=== PATIENT | female | born 1990 | race Caucasian/White ===

== ENCOUNTER 2018-02-11 06:00 | Inpatient (IN) | payer OTHER ==
[2018-02-11] MEDS ORDERED: TERBUTALINE 1 MG/ML VIAL SQ PRN (06:25)
[2018-02-11] MEDS ORDERED: OXYTOCIN 10 UNIT/ML 1 ML VIAL IM PRN (06:25)
[2018-02-11] MEDS ORDERED: CARBOPROST TROMETHAMINE 250 MCG/ML 1 ML AMP IM PRN (06:25)
[2018-02-11] MEDS ORDERED: LIDOCAINE 1% INJ 10MG/ML (20 ML MDV) SQ PRN (06:25)
[2018-02-11] MEDS ORDERED: METHYLERGONOVINE 0.2 MG/ML 1 ML AMP IM PRN (06:25)
[2018-02-11] MEDS: LACTATED RINGERS 1,000 ML IV SCH ×3 (06:41→17:59)
[2018-02-11] MEDS: OXYTOCIN 20 UNITS/1000 ML NS 1,000 ML IV SCH (06:44)
[2018-02-11 06:57] LABS: Glucose,Whole Blood 86 mg/dL (75-99)
[2018-02-11 07:00] LABS: Basophils % (A) 0 %; Eosinophils # (A) 0.1 k/uL (0-0.7); Eosinophils % (A) 2 %; HGB 12.2 gm/dL (11.4-16.0); Lymphocytes # (A) 1.5 k/uL (1.0-4.8); Lymphocytes % (A) 17 %; MCH 30.9 pg (25.0-35.0); MCV 90.9 fL (80.0-100.0); Mean Platelet Volume 7.4; Monocytes # (A) 0.5 k/uL (0-1.0); Monocytes % (A) 6 %; Neutrophils # (A) 6.2 k/uL (1.3-7.7); Neutrophils % (A) 73 %; Platelet Count 199 k/uL (150-450); RBC 3.96 m/uL (3.80-5.40); RDW 13.8 % (11.5-15.5); WBC 8.5 k/uL (3.8-10.6)
[2018-02-11 07:17] VITALS: BMI 29.8
[2018-02-11] MEDS: BUTORPHANOL 1 MG/ML 1 ML VIAL IV PRN ×2 (12:35→20:55)
[2018-02-11 13:46] LABS: Hemoglobin A1C 5.5 % (4.0-6.0)
[2018-02-11] MEDS ORDERED: ROPIVACAINE 5MG/ML 20ML VIAL ONE (14:01)
[2018-02-11] MEDS ORDERED: SODIUM CHLORIDE 0.9% 100 ML BAG ONE (14:01)
[2018-02-11] MEDS ORDERED: fentaNYL (PF) 50 MCG/ML 5 ML AMP ONE (14:01)
--- NOTE | 2018-02-11 18:19 | P.HPOB ---
History of Present Illness H&P Date: 02/11/18 Chief Complaint: IUP @ 403/7 weeks, post dates This is a 27 yo @ 40 3/7 weeks that presents for induction of labor secondary to postdates. Patient has been receiving routine care with myself since the first trimester. Patient has presumptive gestational diabetes as she was unable to tolerate the gestational diabetes screen. Patient notes good movement denies contractions or vaginal bleeding at this time. On blood work showed a blood type of AB+, rubella immune, hepatitis B surface antigen negative, HIV negative, RPR nonreactive, GBS negative. Review of Systems Constitutional: Denies chills, Denies fatigue, Denies fever Ears, nose, mouth and throat: Denies headache Cardiovascular: Reports leg edema Respiratory: Denies cough, Denies dyspnea Gastrointestinal: Denies constipation, Denies diarrhea, Denies nausea, Denies vomiting Genitourinary: Reports Past Medical History Past Medical History: Supraventricular Tachycardia (SVT) Additional Past Medical History / Comment(s): gestational diabetes 11/2017, heart murmur History of Any Multi-Drug Resistant Organisms: None Reported Additional Past Surgical History / Comment(s): D&C 8 yrs ago Past Anesthesia/Blood Transfusion Reactions: No Reported Reaction Past Psychological History: Anxiety, Depression, Panic Disorder Smoking Status: Former smoker Past Alcohol Use History: None Reported Past Drug Use History: None Reported - Past Family History Brother(s) Family Medical History: Diabetes Mellitus Additional Family Medical History / Comment(s): type 1 Mother Family Medical History: Hypertension, Myocardial Infarction ([place]) Medications and Allergies Home Medications Medication Instructions Recorded Confirmed Type Pnv No.95/Ferrous Fum/Folic AC 1 tab PO DAILY 12/03/17 02/11/18 History [ Multivitamin Tablet] Allergies Allergy/AdvReac Type Severity Reaction Status Date / Time No Known Allergies Allergy Verified 02/11/18 06:24 Exam Osteopathic Statement: *. No significant issues noted on an osteopathic structural exam other than those noted in the History and Physical/Consult. Vital Signs Temp Pulse Resp BP 02/11/18 07:09 97.9 F 79 18 121/72 Intake and Output 02/11/18 02/11/18 02/11/18 06:59 14:59 22:59 Intake Total 1600 Balance 1600 Intake: Intake, IV Titration 1000 Amount Lactated Ringers 1,000 ml 1000 @ 125 mls/hr IV .Q8H [facility] Rx#:[id number] Oral 600 Other: Weight 83.915 kg 83.915 kg - OBG Physical Exam Abdomen: Gravid and appropriate for gestational age Cervix: 2/-3 amniotomy is performed and clear fluid was obtained Uterus: enlarged Results Result Diagrams: 02/11/18 06:40 Assessment and Plan (1) Post-dates Current Visit: Yes Status: Acute Code(s): O48.0 - POST-TERM SNOMED Code(s): 99103809 Plan: Admit to labor and delivery for Pitocin induction of labor. Patient does request epidural for pain relief. Anesthesia will be notified when she desires. Anticipate spontaneous vaginal delivery later today.
[2018-02-11] MEDS ORDERED: HYDROcodone/APAP 7.5-325MG 1 EACH TAB PO PRN (21:18)
[2018-02-11] MEDS ORDERED: BENZOCAINE/MENTHOL SPRAY 1 GM/SPRAY AEROSOL TOPICAL PRN (21:18)
[2018-02-11] MEDS ORDERED: HYDROcodone/APAP 5-325MG 1 EACH TAB PO PRN (21:18)
[2018-02-11] MEDS ORDERED: LANOLIN CREAM 5 GM TUBE TOPICAL PRN (21:18)
[2018-02-11] MEDS ORDERED: WITCH HAZEL 1 EACH MED..PAD TOPICAL PRN (21:18)
[2018-02-11] MEDS ORDERED: diphenhydrAMINE 50 MG CAP PO PRN (21:18)
[2018-02-11] MEDS ORDERED: SIMETHICONE 80 MG CHEWABLE PO PRN (21:18)
[2018-02-11] MEDS ORDERED: diphenhydrAMINE 50 MG/ML 1 ML VIAL IVP PRN ×2 (21:18)
[2018-02-11] MEDS ORDERED: ZOLPIDEM 5 MG TAB PO PRN (21:18)
[2018-02-11] MEDS ORDERED: diphenhydrAMINE 25 MG CAP PO PRN (21:18)
[2018-02-11] MEDS ORDERED: HYDROCORTISONE 2.5% RECTAL CREAM 30 GM TUBE RECTAL PRN (21:18)
--- NOTE | 2018-02-11 21:18 | P.PROBDLV ---
Vaginal Delivery Note - . Vaginal Delivery Note: this is a pleasant 27-year-old 2 para 0010 at 40-3/7 weeks that presented to labor and delivery earlier this morning for induction of labor secondary to postdates. Patient was begun on Pitocin and amniotomy was performed once regular contractions were noted. On amniotomy clear fluid was obtained. Patient became uncomfortable and requested an epidural which was placed by anesthesia without difficulty. Patient progressed through labor became complete began pushing and had a normal spontaneous vaginal delivery of a viable female infant at 2043 weight of 8 lbs. 8 oz. with Apgars of 9 and 9 at one and 5 minutes respectively. The umbilical cord was then doubly clamped and cut and the placenta was delivered intact spontaneously. A three-vessel cord was noted. The vaginal vault was inspected and a second-degree midline laceration was noted. This was then injected with lidocaine and repaired in the usual fashion with 3-0 repeat. Afterwards the vaginal vault was inspected hemostasis was appreciated. The uterus was noted to be slightly boggy and Methergine was given during the repair of the second-degree midline laceration. The uterus was palpated and firm below the umbilicus at this time. Estimated blood loss 400 mL. A rectal exam was performed and noted to be intact without defects. Patient and tolerated delivery well and are resting comfortably.
[2018-02-11] MEDS ORDERED: OXYTOCIN 20 UNITS/1000 ML NS 1,000 ML IV SCH (21:30)
[2018-02-11] MEDS: IBUPROFEN 600 MG TAB PO PRN (22:17)
[2018-02-12] MEDS: ACETAMINOPHEN TAB 325 MG TAB PO PRN ×2 (00:16→07:42)
[2018-02-12] MEDS: IBUPROFEN 600 MG TAB PO PRN ×2 (05:02→21:51)
[2018-02-12 07:04] LABS: Basophils % (A) 0 %; Eosinophils % (A) 0 %; HCT 28.9 % (34.0-46.0); Lymphocytes # (A) 1.6 k/uL (1.0-4.8); Lymphocytes % (A) 12 %; MCH 31.5 pg (25.0-35.0); MCHC 34.2 g/dL (31.0-37.0); MCV 91.9 fL (80.0-100.0); Monocytes # (A) 0.7 k/uL (0-1.0); Monocytes % (A) 5 %; Neutrophils # (A) 11.6 k/uL (1.3-7.7); Neutrophils % (A) 82 %; Platelet Count 175 k/uL (150-450); RBC 3.14 m/uL (3.80-5.40); RDW 13.9 % (11.5-15.5); WBC 14.1 k/uL (3.8-10.6)
[2018-02-12 07:05] LABS: HGB 9.9 gm/dL (11.4-16.0)
[2018-02-12] MEDS: LACTATED RINGERS 1,000 ML IV SCH (07:36)
[2018-02-12] MEDS: OXYTOCIN 20 UNITS/1000 ML NS 1,000 ML IV SCH (07:37)
[2018-02-12] MEDS: SENNOSIDES-DOCUSATE SODIUM 1 EACH TAB PO SCH ×2 (07:44→21:51)
--- NOTE | 2018-02-12 09:51 | P.PNOBGVD ---
Subjective - Subjective Principal diagnosis: PPD 1 Interval history: Patient is doing well on this day #1. She is ambulating and voiding without difficulty. She is tolerating a regular diet without nausea or vomiting. She states her pain is controlled. She has elected to bottle feed. Patient reports: Reports appetite normal, Reports voiding normally, Reports pain well controlled, Reports ambulating normally [place]: doing well Objective - Latest Vital Signs Latest vital signs: Vital Signs Temp Pulse Resp BP 02/12/18 08:00 97.5 F L 88 116/66 02/12/18 04:00 97.9 F 77 16 106/65 02/12/18 00:00 98.2 F 95 18 94/56 02/11/18 23:00 90 18 110/61 02/11/18 22:30 87 18 111/63 02/11/18 22:00 97.9 F 77 18 104/60 02/11/18 21:45 92 18 101/60 02/11/18 21:30 97.5 F L 81 18 104/60 02/11/18 21:15 76 18 104/60 02/11/18 21:00 98.3 F 85 18 109/63 Intake and Output 02/11/18 02/12/18 02/12/18 22:59 06:59 14:59 Intake Total 2042.15 Output Total 400 Balance 1642.15 Intake: Intake, IV Titration 2042.15 Amount Lactated Ringers 1,000 ml 1000 @ 125 mls/hr IV .Q8H [facility] Rx#:[id number] Oxytocin 20 Units/1000 ml 42.15 Ns 1,000 ml @ 1 MILLIUNIT/MIN 3 mls/hr IV .Q24H [facility] Rx#:[id number] Oxytocin 20 Units/1000 ml 1000 Ns 1,000 ml @ Per Protocol IV .Q0M [facility] Rx#: [id number] Output: Estimated Blood Loss 400 Other: # Voids 1 - Exam Chest: Normal S2 Extremities: Present: normal, edema Abdomen: Present: normal appearance Uterus: Present: normal, firm - Labs Labs: Abnormal Lab Results - Last 24 Hours (Table) 02/12/18 Range/Units 06:41 WBC 14.1 H (3.8-10.6) k/uL RBC 3.14 L (3.80-5.40) m/uL Hgb 9.9 L D (11.4-16.0) gm/dL Hct 28.9 L (34.0-46.0) % Neutrophils # 11.6 H (1.3-7.7) k/uL Assessment and Plan (1) Post-dates Current Visit: Yes Status: Acute Code(s): O48.0 - POST-TERM SNOMED Code(s): 69754679 (2) Acute blood loss anemia Current Visit: Yes Status: Acute Code(s): D62 - ACUTE POSTHEMORRHAGIC ANEMIA SNOMED Code(s): 796470758 (3) Status post vaginal delivery Current Visit: Yes Status: Acute Code(s): XCY1909 - SNOMED Code(s): 252996575 Plan: We'll continue routine care. And anticipate discharge tomorrow morning.
[2018-02-12] MEDS ORDERED: PRENATAL VIT-IRON-FOLIC ACID 1 EACH CAP PO SCH (12:00)
[2018-02-13] MEDS: IBUPROFEN 600 MG TAB PO PRN (06:38)
[2018-02-13] MEDS: SENNOSIDES-DOCUSATE SODIUM 1 EACH TAB PO SCH (07:51)
[2018-02-13 08:29] VITALS: BP 108/61; PULSE 68; RESP 18; TEMP 97.6
--- NOTE | 2018-02-13 08:36 | P.DS ---
Providers Date of admission: 02/11/18 06:05 Expected date of discharge: 02/13/18 Attending physician: Gabi Edwards Primary care physician: Yenifer Brown - Discharge Diagnosis(es) (1) Post-dates Current Visit: Yes Status: Acute (2) Acute blood loss anemia Current Visit: Yes Status: Acute (3) Status post vaginal delivery Current Visit: Yes Status: Acute (4) Second degree perineal laceration during delivery Current Visit: Yes Status: Acute Hospital Course: This is a very pleasant 27-year-old 2 para 0010 at 40-3/7 weeks with an estimated due date of 02/08 presented to labor and delivery for induction of labor secondary to postdates. Patient was admitted to labor and delivery and Pitocin induction of labor was begun. Amniotomy was performed and clear fluid was obtained. Patient progressed through labor becoming uncomfortable requesting an epidural. This epidural was placed without difficulty by the anesthesia department. Patient progressed to complete began pushing and had a normal spontaneous vaginal delivery of a viable female at 2043, weight of 8 lbs. 8 oz. with Apgars of 9 and 9 at one and 5 minutes respectively. Patient did sustain a second-degree laceration during delivery which was repaired in the usual fashion. On this day #2 she is ambulating and voiding without difficulty. She is tolerating a regular diet without nausea or vomiting. She denies concerns and states she is ready for discharge home. Of note she is bottle feeding. Patient Condition at Discharge: Good Plan - Discharge Summary New Discharge Prescriptions: No Action Pnv No.95/Ferrous Fum/Folic AC [ Multivitamin Tablet] 1 tab PO DAILY Discharge Medication List Pnv No.95/Ferrous Fum/Folic AC [ Multivitamin Tablet] 1 tab PO DAILY 08/15 [History] Follow up Appointment(s)/Referral(s): Gabi Edwards DO [Doctor of Osteopathic Medicine] - 4 Weeks Discharge Disposition: HOME SELF-CARE
== END 2018-02-13 10:40 | disposition home or self-care (01) | DRG 806 ==
LOC: 4FBP 06:05
PROVIDERS: ADMIT Obstetrics & Gynecology Obstetrics; ATTEND Obstetrics & Gynecology Obstetrics
PROC: 10E0XZZ Delivery of Products of Conception, External Approach (ICD-10-PCS; principal; 2018-02-11)
PROC: 0KQM0ZZ Repair Perineum Muscle, Open Approach (ICD-10-PCS; 2018-02-11)
PROC: 10907ZC Drainage of Amniotic Fluid, Therapeutic from Products of Conception, Via Natural or Artificial Opening (ICD-10-PCS; 2018-02-11)
PROC: 3E033VJ Introduction of Other Hormone into Peripheral Vein, Percutaneous Approach (ICD-10-PCS; 2018-02-11)
PROC: 00HU33Z Insertion of Infusion Device into Spinal Canal, Percutaneous Approach (ICD-10-PCS; 2018-02-11)
PROC: 3E0R3BZ Introduction of Anesthetic Agent into Spinal Canal, Percutaneous Approach (ICD-10-PCS; 2018-02-11)
DX: O48.0 Post-term pregnancy (principal); D62 Acute posthemorrhagic anemia; Z37.0 Single live birth; O24.429 Gestational diabetes mellitus in childbirth, unspecified control; O99.344 Other mental disorders complicating childbirth; O70.1 Second degree perineal laceration during delivery; F32.9 Major depressive disorder, single episode, unspecified; F41.0 Panic disorder [episodic paroxysmal anxiety]; O99.02 Anemia complicating childbirth; O99.62 Diseases of the digestive system complicating childbirth; K21.9 Gastro-esophageal reflux disease without esophagitis; Z3A.40 40 weeks gestation of pregnancy; Z87.891 Personal history of nicotine dependence; Z83.3 Family history of diabetes mellitus; Z82.49 Family history of ischemic heart disease and other diseases of the circulatory system
CPT/HCPCS: 83036; 85025; 86850; 86900; 86901

== ENCOUNTER 2022-02-14 13:40 | Outpatient (CLI) | payer BC ==
[2022-02-14 14:53] LABS: Appearance,Urine Clear (Clear); Bacteria,Urine Rare /hpf; Bilirubin,Urine Negative (Negative); Blood,Urine Negative (Negative); Color,Urine Yellow; Glucose,Urine (UA) Negative (Negative); Ketones,Urine 2+ (Negative); Leukocyte Esterase,Urine Large (Negative); Mucus,Urine Rare /hpf; Nitrite,Urine Negative (Negative); PH, Urine 5.5 (5.0-8.0); Protein,Urine Negative (Negative); RBC,Urine 3 /hpf (0-5); Specific Gravity,Urine 1.009 (1.001-1.035); Squamous Epithelial Cell,Urine 2 /hpf (0-4); Urobilinogen,Urine <2.0 mg/dL (<2.0); WBC,Urine 4 /hpf (0-5)
[2022-02-14 18:51] VITALS: BP 105/54; PULSE 80; RESP 16; TEMP 97.9
--- NOTE | 2022-03-20 19:34 | P.MSEPDOC ---
Presenting Problems - Arrival Data Date of Arrival on Unit: 02/14/22 Time of Arrival on Unit: 13:40 Mode of Transport: Ambulatory - Complaint OB-Reason for Admission/Chief Complaint: Vaginal Bleeding Comment: pt here with complaints of vaginal spotting that happened 1 time around 2am last night. small amount pink with mucus when wiped after voiding. also says had been having cramping off and on for 3 days. the cramping slowed down yesterday for most of the day but is back around noon today. cramping pain come and go lower abdomen but no. pattern. Medical History - Information : 5 Para: 1 Term: 1 : 0 Abortions: Spontaneous or Elective: 3 Number of Living Children: 1 - Gestational Age Gestational Age by KEYSHA (wks/days): 28 Weeks and 2 Days - History Comment: 1 vag delivery term no complications. Review of Systems - Review of Systems Constitutional: No problems Breast: No problems ENT: No problems Cardiovascular: No problems Respiratory: No problems Gastrointestinal: No problems Genitourinary: No problems Musculoskeletal: No problems Neurological: No problems Skin: No problems Vital Signs - Temperature Temperature: 97.9 F Temperature Source: Temporal Artery Scan - Pulse Right Supine Pulse Rate: 80 Pulse Assessment Method: Automatic Cuff - Respirations Respiratory Rate: 16 Oxygen Delivery Method: Room Air O2 Sat by Pulse Oximetry: 98 - Blood Pressure Left Arm Blood Pressure: 105/54 Blood Pressure Mean: 71 Blood Pressure Source: Automatic Cuff Medical Screen Scoring - Cervical Exam Dilation (cm): 0 Effacement (%): 0 Membranes: Intact - Uterine Contractions Frequency From (mins): 0 Frequency To (mins): 0 Duration From (seconds): 0 Duration To (seconds): 0 Resting: Soft to palpation - Assessment - Baby A Baseline FHR: 120 Heart Rate - NICHD Category: Category I (Normal) NST: Reactive Physician Notification - Physician Notified Physician Notified Date: 02/14/22 Physician Notified Time: 14:20 Physician: Gabi Edwards New Order Received: Yes - Notification Comment Comment: orders received for UA and cervical exam. Pt may discharge if both normal. Call for further orders if not. [id number] Reported [address]a results to Dr Edwards along with cervix closed with copious amount of greenish curdled discharge vaginally. orders recieved for discharge home and pt to [facility] scripts for diflucan and antibiotics and start tonight. pt also to hydrate with lots of water. Maternal Triage Index - Maternal Triage Index Presenting for scheduled procedure w/no complaint: No - Stat/Priority 1 Stat Priority 1: No - Urgent/Priority 2 Urgent Priority 2: No - Prompt/Priority 3 Prompt Priority 3: No - Non-Urgent/Priority 4 Non-Urgent Priority 4: Yes Criteria Met for Priority 4: mild cramping 28 weeks vag discharge with small spotting >12 hrs ago Disposition - Disposition OB Disposition: Discharge to home Discharge Date: 02/14/22 Discharge Time: 16:10 I agree with the RN Medical Screening Exam: Yes Case reviewed; plan agreed upon as documented in EMR&OBIX.: Yes Diagnosis: RELATED CONDITIONS, UNSPECIFIED, THIRD TRIMESTER
== END 2022-02-14 16:10 | disposition home or self-care (01) ==
LOC: FBPOP 13:40
PROVIDERS: ATTEND Obstetrics & Gynecology Obstetrics
DX: O26.893 Other specified pregnancy related conditions, third trimester (principal); N93.9 Abnormal uterine and vaginal bleeding, unspecified; Z3A.28 28 weeks gestation of pregnancy; Z88.2 Allergy status to sulfonamides; Z87.891 Personal history of nicotine dependence
CPT/HCPCS: 59025; 81001; 99213

== ENCOUNTER 2022-05-01 05:50 | Inpatient (IN) | payer BC ==
[2022-05-01] MEDS ORDERED: TERBUTALINE 1 MG/ML VIAL SQ PRN (06:21)
[2022-05-01] MEDS ORDERED: LIDOCAINE 0.5% (PF) 5 MG/ML (50 ML SDV) SQ PRN (06:21)
[2022-05-01] MEDS ORDERED: OXYTOCIN 30 UNITS/500 ML NS 30 UNIT in SALINE 1 500ML.BAG IV SCH ×2 (06:30→15:30)
[2022-05-01] MEDS: LACTATED RINGERS 1,000 ML IV SCH ×3 (06:31→22:35)
[2022-05-01 07:00] LABS: Basophils % (A) 0 %; Eosinophils # (A) 0.2 k/uL (0-0.7); Eosinophils % (A) 1 %; HCT 32.1 % (34.0-46.0); HGB 11.1 gm/dL (11.4-16.0); Lymphocytes # (A) 2.1 k/uL (1.0-4.8); Lymphocytes % (A) 20 %; MCH 30.2 pg (25.0-35.0); MCHC 34.6 g/dL (31.0-37.0); MCV 87.4 fL (80.0-100.0); Mean Platelet Volume 8.5; Monocytes # (A) 0.6 k/uL (0-1.0); Monocytes % (A) 6 %; Neutrophils # (A) 7.6 k/uL (1.3-7.7); Neutrophils % (A) 71 %; Platelet Count 258 k/uL (150-450); Poikilocytosis Slight; RBC 3.68 m/uL (3.80-5.40); WBC 10.7 k/uL (3.8-10.6)
[2022-05-01] MEDS ORDERED: BUPIVACAINE (PF) 0.25% 30 ML VIAL ONE (12:18)
[2022-05-01] MEDS ORDERED: fentaNYL (PF) 50 MCG/ML 5 ML AMP ONE (12:18)
[2022-05-01] MEDS ORDERED: SODIUM CHLORIDE 0.9% 100 ML BAG ONE (12:18)
[2022-05-01] MEDS ORDERED: METHYLERGONOVINE 0.2 MG/ML 1 ML AMP IM ONE (15:06)
--- NOTE | 2022-05-01 15:08 | P.PROBDLV ---
Vaginal Delivery Note - . Vaginal Delivery Note: findings: Viable male infant delivered at 1447, weight of 8 lbs. 14 oz., Apgars of 8 and 9 at one and 5 minutes respectively 31-year-old at 39 and one sevenths weeks that presents to labor and delivery for induction of labor secondary to polyhydramnios. Patient is admitted to labor and delivery and Pitocin induction of labor is begun. Amniotomy is performed and copious clear fluid was appreciated. Patient progressed through labor eventually becoming uncomfortable and requesting epidural placement. Epidural was placed without difficulty by the anesthesia department. Patient made good progress to complete and began pushing. With excellent maternal effort she did bring the down to presentation. With the additional pushes the head followed by the anterior/posterior shoulder were delivered, the body was then placed on the maternal abdomen. Spontaneous cry was noted. After two-minute delay the umbilical cord was doubly clamped and cut and the placenta was delivered spontaneously intact with a three-vessel cord being noted. The placenta was inspected and found to be hemostatic. On inspection the patient's vaginal vault a second-degree midline laceration was appreciated. This was instilled with lidocaine and repaired in the usual fashion with 3-0 Rapide. The uterus was noted to be firm and below the umbilicus. A small amount of bleeding was noted throughout the repair therefore Methergine was given. Uterus was then noted to be firm and below the umbilicus. Just prior to pushing the bladder was drained for 200 mL of clear yellow urine. Patient and infant tolerated delivery well and are resting comfortable he. All counts were noted to be correct 2 at the end of the delivery.
[2022-05-01] MEDS ORDERED: LANOLIN CREAM 5 GM TUBE TOPICAL PRN (15:25)
[2022-05-01] MEDS ORDERED: diphenhydrAMINE 50 MG CAP PO PRN (15:25)
[2022-05-01] MEDS ORDERED: ACETAMINOPHEN TAB 325 MG TAB PO PRN (15:25)
[2022-05-01] MEDS ORDERED: HYDROCORTISONE 2.5% RECTAL CREAM 30 GM TUBE RECTAL PRN (15:25)
[2022-05-01] MEDS ORDERED: BENZOCAINE/MENTHOL SPRAY 1 GM/SPRAY AEROSOL TOPICAL PRN (15:25)
[2022-05-01] MEDS ORDERED: diphenhydrAMINE 25 MG CAP PO PRN (15:25)
[2022-05-01] MEDS ORDERED: ZOLPIDEM 5 MG TAB PO PRN (15:25)
[2022-05-01] MEDS ORDERED: SIMETHICONE 80 MG CHEWABLE PO PRN (15:25)
[2022-05-01] MEDS ORDERED: diphenhydrAMINE 50 MG/ML 1 ML VIAL IVP PRN ×2 (15:25)
[2022-05-01] MEDS: IBUPROFEN 600 MG TAB PO PRN ×2 (17:29→23:42)
[2022-05-01] MEDS ORDERED: DIPH,PERTUS(ACELL)TETVAC-LF 0.5 ML VIAL IM ONE (19:10)
[2022-05-01] MEDS: SENNOSIDES-DOCUSATE SODIUM 1 EACH TAB PO SCH (22:35)
[2022-05-02] MEDS: IBUPROFEN 600 MG TAB PO PRN ×2 (04:13→09:44)
[2022-05-02 08:07] LABS: Basophils # (A) 0.1 k/uL (0-0.2); Basophils % (A) 0 %; Eosinophils # (A) 0.2 k/uL (0-0.7); Eosinophils % (A) 1 %; HCT 32.1 % (34.0-46.0); HGB 10.8 gm/dL (11.4-16.0); Lymphocytes % (A) 15 %; MCH 29.6 pg (25.0-35.0); MCHC 33.8 g/dL (31.0-37.0); MCV 87.8 fL (80.0-100.0); Mean Platelet Volume 8.5; Monocytes # (A) 0.8 k/uL (0-1.0); Monocytes % (A) 6 %; Neutrophils # (A) 9.7 k/uL (1.3-7.7); Neutrophils % (A) 75 %; Platelet Count 263 k/uL (150-450); Poikilocytosis Slight; RBC 3.66 m/uL (3.80-5.40)
--- NOTE | 2022-05-02 08:28 | P.HPOB ---
History of Present Illness H&P Date: 05/01/22 Chief Complaint: IUP at 39 and one sevenths weeks, polyhydramnios this is a 31-year-old 031 at 39 and one sevenths weeks, estimated due date of 05/07/2022 that presents to labor and delivery for induction of labor secondary to polyhydramnios. Patient has been receiving routine care that has been complicated by polyhydramnios. Patient notes good movement notes an occasional contraction denies loss of fluid or vaginal bleeding. On bloodwork this patient is a blood type of AB+, rubella status immune, B surface antigen negative, HIV negative, RPR is nonreactive, group beta strep cultures are negative. Review of Systems Constitutional: Denies chills, Denies fatigue, Denies fever Ears, nose, mouth and throat: Denies headache Cardiovascular: Reports leg edema Respiratory: Denies dyspnea Gastrointestinal: Denies constipation, Denies diarrhea, Denies nausea, Denies vomiting Genitourinary: Reports Past Medical History Past Medical History: Supraventricular Tachycardia (SVT) Additional Past Medical History / Comment(s): gestational diabetes 11/2017, heart murmur History of Any Multi-Drug Resistant Organisms: None Reported Additional Past Surgical History / Comment(s): D&C 8 yrs ago Past Anesthesia/Blood Transfusion Reactions: No Reported Reaction Past Psychological History: Anxiety, Depression, Panic Disorder Smoking Status: Former smoker Past Alcohol Use History: None Reported Past Drug Use History: None Reported - Past Family History Brother(s) Family Medical History: Diabetes Mellitus Additional Family Medical History / Comment(s): type 1 Mother Family Medical History: Hypertension, Myocardial Infarction ([place]) Medications and Allergies Home Medications Medication Instructions Recorded Confirmed Type Pnv No.95/Ferrous Fum/Folic AC 1 tab PO DAILY 12/03/17 05/01/22 History [ Multivitamin Tablet] Allergies Allergy/AdvReac Type Severity Reaction Status Date / Time Sulfa (Sulfonamide Allergy Rash/Hives Verified 05/01/22 06:13 Antibiotics) Exam Osteopathic Statement: *. No significant issues noted on an osteopathic structural exam other than those noted in the History and Physical/Consult. 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 well-developed female in no acute distress, breathing is nonlabored, heart has a regular rate and rhythm, abdomen is gravid on heart tones, there noted to be category 1 and she is zak every 4 minutes on cervical exam she is 4-5/70/-2 station amniotomy is performed and clear fluid is obtained, copious amount Results Result Diagrams: 05/02/22 07:16 Abnormal Lab Results - Last 24 Hours (Table) 05/01/22 Range/Units 06:20 WBC 10.7 H (3.8-10.6) k/uL RBC 3.68 L (3.80-5.40) m/uL Hgb 11.1 L (11.4-16.0) gm/dL Hct 32.1 L (34.0-46.0) % Assessment and Plan (1) Term Current Visit: Yes Status: Acute Code(s): Z34.90 - ENCNTR FOR SUPRVSN OF NORMAL , UNSP, UNSP TRIMESTER SNOMED Code(s): 63377324 (2) Polyhydramnios Current Visit: Yes Status: Acute Code(s): O40.9XX0 - POLYHYDRAMNIOS, UNSP TRIMESTER, NOT APPLICABLE OR UNSP SNOMED Code(s): 10305912 Plan: 31-year-old at 39 and one sevenths weeks that presents to labor and delivery for induction of labor secondary to polyhydramnios. Patient is admitted and Pitocin induction of labor is begun process per protocol. Options are for analgesia are discussed including nitrous, Stadol, epidural. Patient will consider. Anticipate spontaneous vaginal delivery later today.
--- NOTE | 2022-05-02 08:31 | P.DS ---
Providers Date of admission: 05/01/22 05:50 Expected date of discharge: 05/02/22 Attending physician: Gabi Edwards Primary care physician: Stated None - Discharge Diagnosis(es) (1) Term Current Visit: Yes Status: Acute (2) Polyhydramnios Current Visit: Yes Status: Acute (3) Second degree perineal laceration during delivery Current Visit: No Status: Acute (4) Status post vaginal delivery Current Visit: No Status: Acute Hospital Course: This is a 31-year-old status post normal spontaneous vaginal delivery. Patient presented to labor and delivery on 05/01 for induction of labor secondary to polyhydramnios. Patient had been receiving routine care with myself which appeared competent by the diagnosis of polyhydramnios. testing had been normal in nature. Patient elected induction of labor secondary to maternal discomfort and polyhydramnios. Patient was admitted and Pitocin induction of labor was begun. Patient underwent amniotomy and copious clear fluid was obtained. Patient progressed through labor eventually becoming uncomfortable and requesting epidural placement. After epidural placement tj ent was noted to be complete. Patient soon began pushing and had a normal spontaneous vaginal delivery of a viable male at 1447, weight of 8 lbs. 14 oz. Patient did sustain a second degree midline laceration which was repaired in usual fashion with 3-0 repeat. Patient's course has been uneventful. On this day #1 she is ambulating and voiding without difficulty. She is tolerating a regular diet without nausea or vomiting. She states her pain is well-controlled. She denies concerns and would like discharge home at 24 hours. Patient Condition at Discharge: Good Plan - Discharge Summary New Discharge Prescriptions: No Action Pnv No.95/Ferrous Fum/Folic AC [ Multivitamin Tablet] 1 tab PO DAILY Discharge Medication List Pnv No.95/Ferrous Fum/Folic AC [ Multivitamin Tablet] 1 tab PO DAILY 12/03/17 [History] Follow up Appointment(s)/Referral(s): Gabi Edwards DO [Doctor of Osteopathic Medicine] - 1 Week Patient Instructions/Handouts: Vaginal Delivery (GEN), Vaginal Delivery (DC) Activity/Diet/Wound Care/Special Instructions: Bleeding precautions are reviewed with patient. Patient is counseled on [id number] ibuprofen as needed for pain. Patient is an appointment for check in 4 weeks. Should she have any concerns prior to this visit she is urged to call the office. No tub baths or intercourse for 6 weeks after delivery. Discharge Disposition: HOME SELF-CARE
[2022-05-02] MEDS: SENNOSIDES-DOCUSATE SODIUM 1 EACH TAB PO SCH (09:45)
[2022-05-02 12:22] VITALS: BP 103/70; PULSE 71; RESP 16; TEMP 98.2
== END 2022-05-02 16:15 | disposition home or self-care (01) | DRG 807 ==
LOC: 4FBP 05:50
PROVIDERS: ADMIT Obstetrics & Gynecology Obstetrics; ATTEND Obstetrics & Gynecology Obstetrics
PROC: 10907ZC Drainage of Amniotic Fluid, Therapeutic from Products of Conception, Via Natural or Artificial Opening (ICD-10-PCS; principal; 2022-05-01)
PROC: 3E033VJ Introduction of Other Hormone into Peripheral Vein, Percutaneous Approach (ICD-10-PCS; principal; 2022-05-01)
PROC: 0KQM0ZZ Repair Perineum Muscle, Open Approach (ICD-10-PCS; principal; 2022-05-01)
PROC: 10E0XZZ Delivery of Products of Conception, External Approach (ICD-10-PCS; principal; 2022-05-01)
DX: O40.3XX0 Polyhydramnios, third trimester, not applicable or unspecified (principal); Z37.0 Single live birth; O70.1 Second degree perineal laceration during delivery; O99.344 Other mental disorders complicating childbirth; F41.0 Panic disorder [episodic paroxysmal anxiety]; F32.A Depression, unspecified; Z3A.39 39 weeks gestation of pregnancy; Z86.32 Personal history of gestational diabetes; Z83.3 Family history of diabetes mellitus; Z87.891 Personal history of nicotine dependence
CPT/HCPCS: 85025; 86850; 86900; 86901; 88307

== ENCOUNTER 2023-04-23 20:19 | Outpatient (CLI) | payer BC ==
[2023-04-23 21:46] VITALS: BP 109/63; PULSE 97; RESP 18; TEMP 97.3
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
== END 2023-04-23 20:47 | disposition home or self-care (01) ==
LOC: FBPOP 20:19
PROVIDERS: ATTEND Obstetrics & Gynecology
DX: O9A.212 Injury, poisoning and certain other consequences of external causes complicating pregnancy, second trimester (principal); Z3A.24 24 weeks gestation of pregnancy; Z88.2 Allergy status to sulfonamides; Z87.891 Personal history of nicotine dependence; W10.9XXA Fall (on) (from) unspecified stairs and steps, initial encounter; Y93.89 Activity, other specified
CPT/HCPCS: 99213